=== PATIENT | male | born 1940 | race Caucasian/White ===

== ENCOUNTER → 2016-12-29 | Outpatient (CLI) | payer OTHER ==
--- NOTE | ~2016-12-29 | US37 ---
[facility] A Service of [facility] & [facility] RADIOLOGY TEXT RESULTS PATIENT: JONG PETTIT LOCATION: CNIV : 39 UNIT #: [id number] AGE: [address]: Calli Hatch MD SEX: M ORDER DR: [id number] [facility] [address] [place], [place] [address] [id number] O MR#: [id number] Acc #: [id number] NAME: JONG PETTIT : 1940 SEX: M STUDY DATE/TIME: 12/29/2016 13:32 UNIT: CNIV ROOM: STUDY DESCRIPTION: US Carotid W/Doppler Bilateral Attending Physician: Calli Hatch M.D. Referring Physician: Calli Hatch M.D. Ordering Physician: Calli Hatch M.D. Primary Care Physician: Katy Reddy Aprn [facility] IMAGING REPORT This report is preliminary unless electronic signature is present DATE OF EXAM 12/29/2016 EXAM Bilateral carotid Doppler. HISTORY Carotid stenosis. History of right carotid endarterectomy. FINDINGS The right common, internal, and external carotid arteries are widely patent without plaque or intimal thickening throughout. Velocity of the common carotid artery is 78 cm/sec. Peak systolic velocity of the right proximal internal carotid artery is 72 cm/sec with an end-diastolic velocity of 13 cm/sec, for an ICA/CCA ratio of 0.9. External carotid artery had a velocity of 75 cm/sec. The vertebral artery is visualized with antegrade flow. The left common, internal, and external carotid arteries are patent with [id number] atherosclerotic heterogeneous plaque in the internal and external carotid arteries. Velocity of the common carotid artery is 76 cm/sec. Peak systolic velocity of the left proximal internal carotid artery is 80 cm/sec with an end-diastolic velocity of 15 cm/sec, for an ICA/CCA ratio of 1.05. External carotid artery had a velocity of 174 cm/sec. The vertebral artery is visualized with antegrade flow. IMPRESSION 1. Normal appearance of the right internal carotid artery and less than 50% stenosis of the left internal carotid artery. 2. No stenosis of the right external carotid artery but elevated velocities of the left external carotid artery consistent with stenosis. [facility] A Service of [facility] & [facility] RADIOLOGY TEXT RESULTS PATIENT: JONG PETTIT LOCATION: CNIV : 39 UNIT #: [id number] AGE: [address]: Calli Hatch MD SEX: M ORDER DR: 3. Antegrade flow of the vertebral arteries. Dictated by... Calli Hatch M.D. THIS IS AN ELECTRONICALLY VERIFIED REPORT Calli Hatch M.D. at 12/30/2016 6:35 AM ALEXI/aidan TD: 12/30/2016 02:06 JOB #: [id number] MEDICAL IMAGING REPORT Page 1 of 1 COPY
--- NOTE | ~2016-12-29 | US78 ---
[facility] A Service of [facility] & [facility] RADIOLOGY TEXT RESULTS PATIENT: JONG PETTIT LOCATION: CNIV : 39 UNIT #: [id number] AGE: [address]: Calli Hatch MD SEX: M ORDER DR: [id number] [facility] [address] [place], [place] [address] [id number] O MR#: [id number] Acc #: [id number] NAME: JONG PETTIT : 1940 SEX: M STUDY DATE/TIME: 12/29/2016 12:47 UNIT: CNIV ROOM: STUDY DESCRIPTION: US Kidney Duplex Complete Attending Physician: Calli Hatch M.D. Referring Physician: Calli Hatch M.D. Ordering Physician: Calli Hatch M.D. Primary Care Physician: Katy Reddy Aprn [facility] MEDICAL IMAGING REPORT This report is preliminary unless electronic signature is present EXAM Bilateral renal arterial duplex REASON FOR EXAM Hypertension. FINDINGS The right and left kidney are noted to be intact with blood flow noted to the parenchyma bilateral. The right kidney measures 9.2 cm x 3.9 cm x 4.5 cm and the left 10.0 cm x 4.4 cm x 4.1 cm. The infrarenal aorta is widely patent with a velocity of 84 cm/sec. There is elevated velocities noted in the right renal artery with a velocity proximal of 339 cm/sec, mid artery 190 cm/sec and distally 126 cm/sec for a renal aortic ratio of 4.0. The right renal vein is noted to be patent. The left renal artery velocity proximally is 305 cm/sec, mid artery 211 cm/sec and distally 236 cm/sec for a renal aortic ratio of 3.6. The left renal vein is widely patent. 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 Dictated by... Calli Hatch M.D. THIS IS AN ELECTRONICALLY VERIFIED REPORT Calli Hatch M.D. at 12/30/2016 6:35 AM Dylon TD: 12/30/2016 02:35 [facility] A Service of [facility] & [facility] RADIOLOGY TEXT RESULTS PATIENT: JONG PETTIT LOCATION: CNIV [facility] #: [id number] : [birth year] UNIT #: [id number] AGE: [address]: Calli Hatch MD SEX: M ORDER DR: JOB #: [id number] MEDICAL IMAGING REPORT Page 1 of 1 COPY
== END | disposition home or self-care (01) ==
LOC: CNIV 12:10
DX: I65.23 Occlusion and stenosis of bilateral carotid arteries (principal); I70.1 Atherosclerosis of renal artery; Z98.890 Other specified postprocedural states
CPT/HCPCS: 93880; 93975